=== PATIENT | male | born 1980 | race Caucasian/White ===

== ENCOUNTER 2020-05-12 16:24 | Emergency (ER) | payer SELFPAY ==
--- NOTE | 2020-05-12 18:55 | EDPHYS ---
Physician Documentation [facility] Name: Rahul Rae Age: 39 yrs Sex: Male : 1980 Arrival Date: 05/12/2020 Time: 16:26 Bed Waiting Private MD: GWENDOLYN Physician Historical: - Allergies: 05/12 16:36 Sulfa (Sulfonamide Antibiotics); ss - Home Meds: 16:36 None [Active]; ss - PMHx: 16:36 None; ss - PSHx: 16:36 Hernia repair; ss - Immunization history:: Adult Immunizations up to date. - Social history:: Smoking status: Patient reports use of chewing tobacco. Vital Signs: 16:33 BP 119 / 91; Pulse 77; Resp 16; Temp 97.7(TE); Pulse Ox 99% on R/A; Weight 72.57 kg; ss Height 5 ft. 10 in. (177.80 cm); Pain 7/10; 16:33 Body Mass Index 22.96 (72.57 kg, 177.80 cm) ss MDM: 18:53 ED course: Pt left prior to being seen. snw Administered Medications: No medications were administered Disposition: 05/12/20 18:54 Patient left the facility before being seen by provider. - Patient left due to wait time. - Condition is Undetermined. Signatures: Charlee Wilson, [employer]-C [employer] Luna Orellana RN RN ss
--- NOTE | 2020-05-12 18:55 | ER ---
Nurse's Notes [facility] Name: Rahul Rae Age: 39 yrs Sex: Male : 1980 Arrival Date: 05/12/2020 Time: 16:26 Bed Waiting Private MD: Diagnosis: Presentation: 05/12 16:33 Chief complaint: Patient states: Seen at [facility] two days ago. Was called last ss night and told that he tested positive to gonorrhea and chlamydia. Pt c/o testicular pain, burning with urination and frequency. Pt was instructed by [facility] staff to come to ER for further evaluation and treatment. Coronavirus screen: Proceed with normal triage. Patient denies a cough. Patient denies shortness of breath or difficulty breathing. Patient denies measured and/or subjective temperature greater than 100.4F prior to today's visit. Patient denies travel on a cruise ship or to a country the [facility] currently lists as an affected area. Patient denies contact with known and/or suspected case of COVID-19. Ebola Screen: Patient denies exposure to infectious person. Patient denies travel to an Ebola-affected area in the 21 days before illness onset. Initial Sepsis Screen: Does the patient meet any 2 criteria? No. Patient's initial sepsis screen is negative. Does the patient have a suspected source of infection? Yes: Other: STI. Risk Assessment: Do you want to hurt yourself or someone else? Patient reports no desire to harm self or others. Onset of symptoms is unknown. 16:33 Method Of Arrival: Ambulatory 16:33 Acuity: SANDRA 4 Historical: - Allergies: 16:36 Sulfa (Sulfonamide Antibiotics); ss - Home Meds: 16:36 None [Active]; ss - PMHx: 16:36 None; ss - PSHx: 16:36 Hernia repair; ss - Immunization history:: Adult Immunizations up to date. - Social history:: Smoking status: Patient reports use of chewing tobacco. Assessment: 17:15 Reassessment: due to wait time. Vital Signs: 16:33 BP 119 / 91; Pulse 77; Resp 16; Temp 97.7(TE); Pulse Ox 99% on R/A; Weight 72.57 kg; ss Height 5 ft. 10 in. (177.80 cm); Pain 7/10; 16:33 Body Mass Index 22.96 (72.57 kg, 177.80 cm) ED Course: 16:26 Patient arrived in ED. bp1 16:35 Triage completed. ss 16:36 Arm band placed on right wrist. ss 17:15 No provider procedures requiring assistance completed. Patient did not have IV access ss during this emergency room visit. Administered Medications: No medications were administered Outcome: 17:15 Eloped from waiting room, before seeing physician ss 18:54 Patient left the ED. ss Signatures: Luna Orellana, RN RN Pat Kim bp1
[2020-05-12 19:04] VITALS: BP 119/91; TEMP 97.7; O2SAT 99
== END 2020-05-12 18:54 | disposition left against medical advice (07) ==
LOC: ER 16:24
DX: Z53.21 Procedure and treatment not carried out due to patient leaving prior to being seen by health care provider (principal)
CPT/HCPCS: 99281